=== PATIENT | female | born 1995 ===

== ENCOUNTER 2023-05-25 10:30 | Inpatient (IN) ==
[2023-05-25] MEDS ORDERED: ceFAZolin 2000MG 2,000 MG/15 ML SYR IV STA (11:29)
[2023-05-25] MEDS ORDERED: LACTATED RINGER'S 1,000 ML IV SCH ×2 (11:30→12:30)
--- NOTE | 2023-05-25 11:36 | History & Physical Report ---
Date of Service May 25, 2023 Assessment & Plan (1) 39 weeks gestation of : (2) Rh negative status during : (3) Breech presentation: Plan admit, iv, labs. early active labor, will proceed with c/s. rhogam eval pp. plan abx. consent reviewed and signed. anesth and nursery aware. History of Present Illness Chief Complaint: mucus dc and contractions Primary Care Provider: Curt Pollard, DO 28yo at 39+wks ega presents to L&D noting fluidy mucus pink dc this am and contractions that have increased in frequency and intensity. She called this am and told to come in. She denies soaking pads, still with mucus dc. Contractions are stronger breathing with them. +FM PNC c/b 1. Breech presentation, planned c/s on saturday 2. Rh neg, had rhogam and plan eval pp 3. GBS pos PNL rh neg, ri, gbs pos OBH: g3, sab x 2 GYNH: nl paps no stds Allergies Allergy/AdvReac Type Severity Reaction Status Date / Time No Known Allergies Allergy Verified 05/25/23 11:04 Home Medications Medication Instructions Recorded Confirmed Type prenat.vits,rony,cpo-tjfh-pajny 1 tab PO QAM 10/12/22 05/25/23 History breast pump #1 ea 01/18/23 05/24/23 Rx RSV vac, preF A and preF B(PF) 120 0.5 ml IM ONCE #1 ea 04/23/23 05/25/23 Rx mcg/0.5 mL IM solution (Abrysvo) ferrous sulfate [Iron (ferrous 1 dose PO QAM 05/03/23 05/25/23 History sulfate)] Patient History Medical History History of COVID-19 02/2023 + home test. fever, chills, body aches. resolved. History of gallstones History of pancreatitis Acid reflux w/ Anxiety and depression Surgical History History of esophagogastroduodenoscopy (EGD) S/P cholecystectomy S/P wisdom tooth extraction Hx of tonsillectomy Family History Father Multiple sclerosis Mother Ovarian cancer Cervical cancer Other Colorectal cancer Diabetes Dyslipidemia Hypertension Myocardial infarction Denies family history of Prostate cancer Breast cancer Social History Smoking Status: Never smoker Tobacco Type: E-cigarettes / Vaping Second Hand Exposure: No; Do You Dip or Chew Tobacco: No; Hx Alcohol Use: No Hx Substance Use: No Preferred Language: Lithuanian Communication Ability: Effective Weather Teacher Required: No Beliefs That Will Affect Care: None marital status: Single marital status details: Reina Hobson (34) [phone] Current Living Situation: Significant Other Current Living Situation Comment: Ajit Hobson current occupational status: employed current occupation: [employer]- [employer] How many Children do You have: 0 Other Information That Helps Us Care for You: No Feels Safe at Home: Yes Safety Concerns: Feels Safe At This Time Childhood Exposure to Second-Hand Smoke: Yes caffeine: Yes Dental Care, Regularly: Yes Physical Activity Frequency: 3-4 Times per Week Seatbelt Use: always Sunscreen Use: Yes Assistive Devices: Contacts and Glasses Review of Systems as per Subjective / HPI Physical Exam Constitutional: WD/WN, vitals as above Respiratory: normal respiratory effort, lungs clear to auscultation Cardiovascular: Rate/Rhythm: regular rate and regular rhythm Gastrointestinal (Abdomen): soft gravid nt Musculoskeletal: no edema nontender calves Neurologic: grossly normal Psychiatric: A+Ox3, euthymic affect Genitourinary: OB Exam Abdomen: + breech (confirmed by us) Manual OB Exam: + cervical dilation (3-4cm), + cervical effacement 90% and + station -2 OB Exam Monitor Tracing: + external FHT monitor used, + external uterine monitor used (q4-6), + category I and + normal FHT variability SSE no pooling, neg nitrazine, neg ferning. Results & Data Vital Signs (Past 12 Hours) Vital Signs Temp Pulse Resp BP 05/25/23 10:45 98.2 F 20 05/25/23 10:41 100 H 130/79 Coding Level of Care Code None Diagnoses 39 weeks gestation of Z3A.39 Rh negative status during O26.899; Z67.91 Breech presentation O32.1XX0
--- NOTE | 2023-05-25 12:08 | Anesthesiology Consultation ---
Date of Service May 25, 2023 Assessment & Plan Chart Review Chart Review: Acceptable Risk for Surgery and Patient NOT seen in Pre Admission Testing Consults Requested none ASA ASA2E Proposed Anesthesia Anesthesia Type: Spinal (+intraspinal morphine) Risk / Benefits Reviewed With: PT / POA / Parent / Guardian, Accepts Plan and Informed Consent Obtained History Surgery Operation Date: 05/25/23 10:30 Proposed Procedures p Section in LD - Ade Breen MD, FACOG Height/Weight Height: 5 ft 1 in Weight: 83.007 kg Allergies Allergy/AdvReac Type Severity Reaction Status Date / Time No Known Allergies Allergy Verified 05/25/23 11:04 Medications Home Medications Medication Instructions Recorded Confirmed Last Taken prenat.vits,rony,bpu-dove-xdazp 1 tab PO QAM 10/12/22 05/25/23 05/24/23 07:00 breast pump #1 ea 01/18/23 05/24/23 Unknown RSV vac, preF A and preF B(PF) 120 0.5 ml IM ONCE #1 ea 04/23/23 05/25/23 Unknown mcg/0.5 mL IM solution (Abrysvo) ferrous sulfate [Iron (ferrous 1 dose PO QAM 05/03/23 05/25/23 05/23/23 07:00 sulfate)] Past Medical History Medical History History of COVID-19 02/2023 + home test. fever, chills, body aches. resolved. History of gallstones History of pancreatitis Acid reflux w/ Anxiety and depression Exercise / Class Metabolic Activity II 4-5 Yardwork/Stairs/Walk up hill Past Family History Family History Father Multiple sclerosis Mother Ovarian cancer Cervical cancer Other Colorectal cancer Diabetes Dyslipidemia Hypertension Myocardial infarction Denies family history of Prostate cancer Breast cancer Past Surgical History Surgical History History of esophagogastroduodenoscopy (EGD) S/P cholecystectomy S/P wisdom tooth extraction Hx of tonsillectomy Past Anesthesia History No Hx of Anesthesia Complications and No Family Hx of Anesthesia Complications History of PONV No Hx of PONV and No Hx of Motion Sickness Social History Smoking Status: Never smoker Do You Dip or Chew Tobacco: No Hx Alcohol Use: No Hx Substance Use: No substance use type: does not use Physical Exam Vital Signs Last Vital Signs Temp 36.8 C 05/25/23 10:45 Pulse 100 H 05/25/23 10:41 Resp 20 05/25/23 10:45 BP 130/79 05/25/23 10:41 ENMT Mouth: no dentition abnormality Thyromental Distance: > or= 3.5 Finger Breadths Mallampati Class: II Neck normal visual inspection Respiratory normal respiratory effort Auscultation: lungs clear to auscultation bilaterally Cardiovascular Rate/Rhythm: regular rate and regular rhythm Psychiatric Orientation: alert
[2023-05-25] MEDS ORDERED: MoRPHine SULFATE PF 1 MG/ML 10 ML AMP/VIAL ONE (12:13)
[2023-05-25 12:22] LABS: Basophils # (auto) 0.05 K/uL (0.00-0.20); Basophils % (auto) 0.4 %; Eosinophils # (auto) 0.05 K/uL (0.00-0.50); Eosinophils % (auto) 0.4 %; Hematocrit (blood only) 36.4 % (37.0-47.0); Immature Granulocytes # (auto) 0.09 K/uL (0.01-0.20); Immature Granulocytes % (auto) 0.8 %; Lymphocytes # (auto) 2.25 K/uL (1.20-3.40); Lymphocytes % (auto) 19.9 %; Mean Corpuscular Hemoglobin 29.8 pg (25.0-34.0); Mean Corpuscular Volume 90.3 fL (80.0-100.0); Mean Platelet Volume 10.1 fL (9.4-12.4); Monocytes # (auto) 0.84 K/uL (0.11-0.59); Monocytes % (auto) 7.4 %; Neutrophils % (auto) 71.1 %; Platelet Count 248 K/uL (130-400); RDW Coefficient of Variation 13.7 % (11.5-14.5); RDW Standard Deviation 45.1 fL (36.4-46.3); Red Blood Count 4.03 M/uL (4.20-5.40); White Blood Count 11.28 K/ul (4.8-10.8)
[2023-05-25] MEDS ORDERED: ONDANSETRON INJ 2 MG/ML 2 ML VIAL ONE (12:39)
[2023-05-25] MEDS ORDERED: PHENYLEPHRINE 100MCG/ML 10ML SYR IV ONE (12:39)
[2023-05-25] MEDS ORDERED: OXYTOCIN 10 UNITS/ML VIAL ONE (12:39)
[2023-05-25] MEDS ORDERED: KETOROLAC 30 MG/ML VIAL ONE (12:39)
--- NOTE | 2023-05-25 13:17 | Operative Report ---
PG Post Operative Report Pre & Post Diagnosis Operation Date: 05/25/23 10:30 Pre-Op Diagnosis: 39 week iup, breech presentation, early active labor Post-Op Diagnosis: same I identified the patient and participated in the time-out.: Yes Procedure Operation Date: 05/25/23 10:30 Actual Procedures p Primary Low Transverse Section in - Ade Breen MD, FACOG Surgeon Ade Breen MD, FACOG Boat Cleaning Supervisor RN Estimated Blood Loss 600 Findings Consistent with Post-Op Diagnosis (viable male , harper breech. normal uterus tubes and ovaries bilaterally) Fluids 1200 Specimens cord blood Drains telles Anesthesia Type Spinal Complications none Disposition Accompanied Patient To Recovery: No Disposition: L&D Indications 28yo at 39wks known breech presentation who presented to L&D in labor. Description of Procedure The patient was taken to the operating room and identified. After adequate anesthesia was obtained, she was placed in the supine position with a leftward tilt on the operating table and prepped and draped in the usual sterile fashion. A telles catheter had already been placed. The knife was used to create a Pfannensteil skin incision that was carried down to the underlying layer of fascia. The fascia was nicked in the midline and this opening was extended laterally using Mora scissors. Michael clamps were placed on the superior and inferior aspect of the fascial incision tenting it upward and the underlying rectus muscles were dissected off the overlying fascia both sharply and bluntly using Mora scissors. The rectus muscles were bluntly in the midline. The peritoneal cavity was bluntly entered into. This opening was stretched. The bladder blade was placed. The vesicouterine peritoneum was elevated and opened up into and the bladder flap was created digitally and bladder blade was replaced. The knife was used to create a hysterotomy and this opening was stretched. The operators hand was placed through the hysterotomy and the bladder blade was removed. The buttocks was elevated and with fundal pressure was delivered to level of scapulae, the arms were swept across the anterior midline and the head was flexed and delivered. The cord was clamped and cut and the was handed off to the awaiting pediatricians. Cord blood was obtained. The placenta was manually expressed. The uterus was exteriorized and cleared of all clots and debris. Dilute IV Pitocin was begun. The uterine tone was improving. The hysterotomy was closed in a running interlocking fashion using 0 Vicryl followed by a second imbricating layer of 0 Vicryl. The hysterotomy was not hemostatic at right corner and so additional figure of eight suture of 2-0 vicryl was placed for excellent hemostasis. The pelvis was suctioned. The uterus was returned to the abdomen. The gutters were cleared of all clots and debris. The hysterotomy was reinspected and noted to be hemostatic. The fascia was then closed in running fashion using 0 Vicryl. The subcutaneous fat was copiously irrigated and reapproximated using 2-0 chromic. The skin was closed in a subcuticular fashion using 4-0 monocryl. At this point the procedure was terminated. The patient was transferred to the recovery room in stable con dition. All sponge, lap and needle counts are correct x2. I attest to the content of the Intraoperative Record and any orders documented therein. Any exceptions are noted below. OB Procedure Charges 74635
[2023-05-25] MEDS ORDERED: NALBUPHINE HCL 5 MG in SYRINGE 0 ML IV PRN (13:22)
[2023-05-25] MEDS ORDERED: NALOXONE HCL 0.4 MG/1 ML VIAL/CARP IV PRN (13:22)
[2023-05-25] MEDS ORDERED: PROMETHAZINE HCL 6.25 MG in SODIUM CHLORIDE 0.9% 50 ML IV PRN (13:22)
[2023-05-25] MEDS ORDERED: MoRPHine SULFATE PF 1 MG/ML 10 ML AMP/VIAL INT SPINAL ONE (13:22)
[2023-05-25] MEDS ORDERED: ePHEDrine sulfate 50 MG/ML AMP IV PRN (13:22)
[2023-05-25] MEDS ORDERED: MEPERIDINE HCL 25 MG/ML CARP/VIAL IV PRN (13:22)
[2023-05-25] MEDS ORDERED: LACTATED RINGER'S 500 ML IV PRN (13:22)
[2023-05-25] MEDS ORDERED: MoRPHine SULFATE 2 MG/ML CARP IV PRN (13:22)
[2023-05-25] MEDS ORDERED: NALOXONE HCL 1 MG in SODIUM CHLORIDE 0.9% 1,000 ML IV PRN (13:22)
[2023-05-25] MEDS ORDERED: HYDROmorphone INJ 0.5 MG/0.5 ML SYR IV PRN (13:22)
[2023-05-25] MEDS ORDERED: NALOXONE HCL 0.08 MG in SYRINGE 1.8 ML IV PRN (13:22)
[2023-05-25] MEDS ORDERED: diphenhydrAMINE 50 MG/ML VIAL IV PRN (13:22)
--- NOTE | 2023-05-25 13:23 | Anesthesiology Progress Note ---
Date of Service May 25, 2023 Anesthesia Post Procedure Vital Signs Vital Signs: Temp Pulse Resp BP Pulse Ox 05/25/23 13:18 100 05/25/23 13:18 90 05/25/23 13:18 153/59 H 05/25/23 10:45 36.8 C 20 05/25/23 10:41 100 H 130/79 Transfer of Care Handoff Completed per policy Notes Mental Status: alert / awake / arousable Nausea / Vomiting: adequately controlled Pain: adequately controlled Airway Patency, RR, SpO2: stable & adequate BP & HR: stable & adequate Hydration State: stable & adequate Neuraxial Anesthesia: was administered and sensory block is resolving Anesthetic Complications: no major complications apparent and Pt Satisfied with anesthetic care
[2023-05-25] MEDS ORDERED: SODIUM CHLORIDE 0.9% 1,000 ML IV SCH (13:30)
[2023-05-25] MEDS ORDERED: DC INTRASPINAL MORPHINE SCH (13:30)
[2023-05-25] MEDS ORDERED: NO NARCOTICS OR SEDATIVES SCH (13:30)
[2023-05-25] MEDS ORDERED: SENNA 8.6 MG TAB PO PRN (13:32)
[2023-05-25] MEDS ORDERED: BENZOCAINE 20% SPRY 85 APPLN/85 GM CAN EXT PRN (13:32)
[2023-05-25] MEDS ORDERED: HYDROCORTISONE ACETATE 25 MG SUPP PR PRN (13:32)
[2023-05-25] MEDS ORDERED: DIPHTHERIA/TETANUS/PERTUSSIS Vaccine (Tdap, Age 7+yrs) 0.5mL SYR/VL IM ONE (13:32)
[2023-05-25] MEDS ORDERED: MAGNESIUM HYDROXIDE SUSP 30 ML UDC PO PRN (13:32)
[2023-05-25] MEDS ORDERED: SODIUM CHLORIDE 0.9% 500 ML IV ONE (15:36)
[2023-05-25] MEDS: OXYTOCIN 20 UNITS in LACTATED RINGER'S 1,000 ML IV SCH ×2 (16:00→23:37)
[2023-05-25] MEDS: SIMETHICONE 80 MG CHEW PO SCH ×2 (17:39→20:28)
[2023-05-25] MEDS: DOCUSATE SODIUM 100 MG CAP PO SCH (20:28)
[2023-05-25] MEDS: KETOROLAC 30 MG/ML VIAL IV PRN (22:46)
[2023-05-26] MEDS: KETOROLAC 30 MG/ML VIAL IV PRN (04:43)
[2023-05-26] MEDS ORDERED: CITRIC ACID/SODIUM CITRATE 15 ML UDC PO SCH (06:00)
[2023-05-26 07:17] LABS: Basophils # (auto) 0.03 K/uL (0.00-0.20); Basophils % (auto) 0.2 %; Eosinophils # (auto) 0.06 K/uL (0.00-0.50); Eosinophils % (auto) 0.5 %; Hematocrit (blood only) 29.5 % (37.0-47.0); Hemoglobin 9.7 g/dl (12.0-16.0); Immature Granulocytes # (auto) 0.08 K/uL (0.01-0.20); Immature Granulocytes % (auto) 0.6 %; Lymphocytes # (auto) 1.76 K/uL (1.20-3.40); Lymphocytes % (auto) 13.5 %; Mean Corpuscular Hemoglobin 29.8 pg (25.0-34.0); Mean Corpuscular Hgb Conc 32.9 g/dL (32.0-36.0); Mean Corpuscular Volume 90.5 fL (80.0-100.0); Mean Platelet Volume 9.8 fL (9.4-12.4); Monocytes # (auto) 0.97 K/uL (0.11-0.59); Monocytes % (auto) 7.5 %; Neutrophils # (auto) 10.12 K/uL (1.40-6.50); Neutrophils % (auto) 77.7 %; Platelet Count 190 K/uL (130-400); RDW Coefficient of Variation 13.8 % (11.5-14.5); RDW Standard Deviation 45.3 fL (36.4-46.3); Red Blood Count 3.26 M/uL (4.20-5.40); White Blood Count 13.02 K/ul (4.8-10.8)
[2023-05-26] MEDS ORDERED: diphenhydrAMINE Capsule 25 MG CAP PO PRN (07:23)
[2023-05-26] MEDS ORDERED: diphenhydrAMINE 50 MG/ML VIAL IV PRN (07:23)
[2023-05-26] MEDS ORDERED: ZOLPIDEM TARTRATE 5 MG TAB PO PRN (07:23)
[2023-05-26] MEDS ORDERED: ONDANSETRON INJ 2 MG/ML 2 ML VIAL IV PRN (07:23)
[2023-05-26] MEDS ORDERED: PROMETHAZINE HCL 25 MG in SODIUM CHLORIDE 0.9% 50 ML IV PRN (07:23)
[2023-05-26] MEDS: FERROUS SULFATE 325 MG TAB PO SCH (09:08)
[2023-05-26] MEDS: SIMETHICONE 80 MG CHEW PO SCH ×4 (09:09→20:27)
[2023-05-26] MEDS: oxyCODONE/ACETAMINOPHEN 5mg/325mg TAB PO PRN ×3 (09:09→18:15)
[2023-05-26] MEDS: PRENATAL VITAMIN 1 TAB PO SCH (09:09)
[2023-05-26] MEDS: DOCUSATE SODIUM 100 MG CAP PO SCH ×2 (09:09→20:27)
[2023-05-26] MEDS: IBUPROFEN 600 MG TAB PO PRN ×3 (09:09→18:16)
--- NOTE | 2023-05-26 09:38 | Obstetrical Progress Note ---
Date of Service May 26, 2023 Assessment & Plan (1) care following delivery: Plan stable, routine care. await void, adv diet, enc ambulation and use of po pain meds. will need rhogam. breast feeding. Day #:: 1 Subjective Ambulation: limited ambulation Voiding: no voiding problems (telles out(about 1hr ago) but no void yet) Passing Gas:: Yes Diet Tolerance:: regular diet Lochia:: Small Feeding Type:: breast feeding denies pain issues, did just get some po pain meds. Constitutional: + as per Subjective / HPI Physical Exam Constitutional WD/WN, vitals as above Respiratory normal respiratory effort, lungs clear to auscultation Cardiovascular Rate/Rhythm: regular rate and regular rhythm Gastrointestinal (Abdomen) Inspection/Auscultation: abdomen normal to inspection and + abdominal surgical incision (c/d/i ) Percussion/Palpation: + abdomen tender (mild appropriate) and abdomen soft Fundus firm 2cm down Musculoskeletal nt calves no edema Neurologic grossly normal Psychiatric A+Ox3, euthymic affect Results & Data Vital Signs (Past 12 Hours) Vital Signs Temp Pulse Pulse Resp BP Pulse Ox O2 Del Method 05/26/23 08:48 97.7 F 58 L 16 152/101 H 05/26/23 06:24 20 98 05/26/23 05:00 18 97 05/26/23 04:19 20 99 05/26/23 03:20 18 99 05/26/23 03:09 98.2 F 93 H 18 108/73 96 Room Air 05/26/23 02:00 18 98 05/26/23 01:10 20 99 05/26/23 00:57 18 98 05/26/23 00:13 98.2 F 96 H 18 103/62 100 Room Air 05/25/23 23:00 20 96 05/25/23 22:30 18 98 05/25/23 21:47 20 99
[2023-05-26] MEDS: LACTATED RINGER'S 1,000 ML IV SCH ×2 (19:14→19:15)
[2023-05-27] MEDS: IBUPROFEN 600 MG TAB PO PRN ×4 (00:24→13:47)
[2023-05-27] MEDS: oxyCODONE/ACETAMINOPHEN 5mg/325mg TAB PO PRN ×4 (00:24→13:47)
--- NOTE | 2023-05-27 05:27 | Obstetrical Progress Note ---
Date of Service <Jose Jmorgan Fuentes - Last Filed: 05/27/23 07:09> May 27, 2023 Assessment & Plan <Jose J Fuentes - Last Filed: 05/27/23 07:09> (1) care following delivery: Plan 28 year old , POD#2: Eating well, voiding well, ambulating well Vitals reviewed, WNL Pain well controlled with Percocet and Motrin Routine post-op care - OOB, ambulation, diet progression as tolerated Will have 6 week follow up with Dr. Breen <Ade Breen MD, FACOG - Last Filed: 05/27/23 07:21> (1) care following delivery: Subjective <Jose Jmorgan Fuentes - Last Filed: 05/27/23 07:09> Ambulation: ambulating normally Voiding: no voiding problems Passing Gas:: Yes Diet Tolerance:: regular diet Lochia:: Small Feeding Type:: breast feeding Pain well controlled with Percocet and Motrin Review of Systems -Denies fever or chills -Denies dyspnea, chest pain, or palpitations -Denies dysuria -Denies headache or changes in vision Physical Exam <Jose J Alfredo - Last Filed: 05/27/23 07:09> General: Alert and oriented. No acute distress Cardiac: Regular rate and rhythm, no murmurs appreciated Respiratory: Lungs clear to auscultation bilaterally, No increased work of breathing Abdominal: Soft, non-tender, non-distended. Bowel sounds present. Uterus: Uterine fundus firm, palpable below umbilicus Skin: Incision site intact, clean, and dry Extremities: Mild bilateral LE edema, symmetrical bilaterally, no erythema, calves non-tender bilaterally Results & Data <Jose Jmorgan Fuentes - Last Filed: 05/27/23 07:09> Vital Signs (Past 12 Hours) Vital Signs Temp Pulse Resp BP Pulse Ox O2 Del Method 05/26/23 22:19 36.6 C 87 16 108/76 98 Room Air 05/26/23 19:55 36.7 C 108 H 18 121/82 98 Room Air Supervising Physician <Ade Breen MD, FACOG - Last Filed: 05/27/23 07:21> Co-Signing Physician Notes Resident Physician Supervision Note: I was present with Dr. Fuentes during the history and exam. I discussed the case with the resident and agree with the findings and plan as documented in the note. Any exceptions or clarifications are listed here: pt doing well. eating, voiding, ambulating, pain well controlled, using percocet. checked on papdmp and no issues. , had her rhogam. not sure if she wants to go home today. advised waiting and seeing how today goes and will dw nursing. will send percocet in case. abd soft ff 2 down nt, incision c/d/i with bruising, ext nt calves. tr edema. pod#2. Documented By: Ade Breen MD, FACOG Resident Activity Tracking <Jose J Fuentes, - Last Filed: 05/27/23 07:09> Resident Involvement: Resident Care Provided Care Provided: OB Delivery
[2023-05-27 06:22] LABS: Hematocrit (blood only) 28.4 % (37.0-47.0); Hemoglobin 9.2 g/dl (12.0-16.0)
[2023-05-27] MEDS: PRENATAL VITAMIN 1 TAB PO SCH (07:38)
[2023-05-27] MEDS: DOCUSATE SODIUM 100 MG CAP PO SCH (07:38)
[2023-05-27] MEDS: FERROUS SULFATE 325 MG TAB PO SCH (07:38)
[2023-05-27] MEDS: SIMETHICONE 80 MG CHEW PO SCH ×2 (07:39→13:47)
[2023-05-27] MEDS ORDERED: bisacodyL 10 MG SUPP PR PRN (13:20)
--- NOTE | 2023-05-30 13:26 | Discharge Summary ---
Date of Service Date of admission: May 25, 2023 Date of discharge: May 27, 2023 Admission HPI Per Admitting Provider 28yo at 39+wks sage presents to L&D noting fluidy mucus pink dc this am and contractions that have increased in frequency and intensity. She called this am and told to come in. She denies soaking pads, still with mucus dc. Contractions are stronger breathing with them. +FM PNC c/b 1. Breech presentation, planned c/s on saturday 2. Rh neg, had rhogam and plan eval pp 3. GBS pos PNL rh neg, ri, gbs pos OBH: g3, sab x 2 GYNH: nl paps no stds Discharge Data Consultations 05/25/23 11:29 Consult Anesthesiology Stat Procedures Performed Operation Date: 05/25/23 10:30 Actual Procedures p Primary Low Transverse Section in - Ade Breen MD, [facility] [place] Hospital Course (1) 39 weeks gestation of : (2) Breech presentation: (3) care following delivery: Plan The patient underwent the above stated procedure without incident and her postoperative course and recovery was uncomplicated. On her postoperative day #2 she was tolerating a regular diet, voiding spontaneously, ambulating without problem and was using oral meds for adequate pain control. Her postoperative hemoglobin was 9.2. She was given written and verbal discharge instructions and told to followup in office at 6wks. She was given appropriate pain medicine prescriptions. Coding Level of Care Code None Diagnoses 39 weeks gestation of Z3A.39 Breech presentation O32.1XX0 care following delivery Z39.2
== END 2023-05-27 16:00 | disposition home or self-care (01) | DRG 788 ==
LOC: OPB 10:30 → 4S1 10:32 → 4E2 16:14
DX: O26.893 Other specified pregnancy related conditions, third trimester; O32.1XX0 Maternal care for breech presentation, not applicable or unspecified; Z67.91 Unspecified blood type, Rh negative; Z79.899 Other long term (current) drug therapy; Z3A.39 39 weeks gestation of pregnancy; Z37.0 Single live birth; O99.824 Streptococcus B carrier state complicating childbirth